=== PATIENT | female | born 1990 | race Caucasian/White ===

== ENCOUNTER 2021-08-07 10:12 | Emergency (ER) | payer OTHER ==
[2021-08-07] MEDS ORDERED: SODIUM CHLORIDE 0.9% 1,000 ML IV STA (10:34)
[2021-08-07] MEDS ORDERED: ONDANSETRON 4 MG/2 ML VIAL IVP STA (10:34)
--- NOTE | 2021-08-07 10:35 | ED Physician Documentation ---
PD HPI ABD PAIN - Stated complaint Stated Complaint: FEVER, RT LOWER ABD PX, HEADACHE - Chief complaint Chief Complaint: Abd Pain - History obtained from History obtained from: Patient - Additional information Additional information: 30-year-old with history of remote ectopic on the left presents with 2 days of right lower quadrant pain associated with a fever at home up to 101. She doubts , last menses was the fourth of this month although she is sexually active. [place] [employer] [place] and evaluated and sent here for CT scanning for concern for appendicitis. Declines pain medication on initial evaluation but would like something for nausea. Review of Systems Ten Systems: 10 systems reviewed and negative Constitutional: denies: Fever, Chills Eyes: reports: Reviewed and negative Cardiac: reports: Reviewed and negative Respiratory: reports: Reviewed and negative PD PAST MEDICAL HISTORY - Present Medications Home Medications: Ambulatory Orders Medication Instructions Recorded Confirmed Ciprofloxacin HCl [Cipro] 500 mg PO BID #14 tablet 08/07/21 HYDROcod/ACETAM 5/325 [[place] 5/325] 1 - 2 tab PO Q6H PRN #15 tablet 08/07/21 Ondansetron Odt [Zofran] 4 mg TL Q6H PRN #10 tablet 08/07/21 metroNIDAZOLE [Flagyl] 500 mg PO TID 7 Days #21 tablet 08/07/21 - Allergies Allergies/Adverse Reactions: Allergies Allergy/AdvReac Type Severity Reaction Status Date / Time No Known Drug Allergies Allergy Verified 08/07/21 10:29 PD ED PE NORMAL - Vitals Vital signs reviewed: Yes - General General: Alert and oriented X 3, No acute distress - HEENT HEENT: PERRL, EOMI - Neck Neck: Supple, no meningeal sign, No bony TTP - Cardiac Cardiac: RRR, No murmur - Respiratory Respiratory: No respiratory distress, Clear bilaterally - Abdomen Abdomen: Normal bowel sounds, Soft, Other (Focally tender in the right lower wu drant at McBurney's point without surgical signs) - Back Back: No CVA TTP, No spinal TTP - Derm Derm: Normal color, Warm and dry - Extremities Extremities: No edema, No calf tenderness / cord - Neuro Neuro: Alert and oriented X 3, Normal speech Results - Vitals Vitals: Vital Signs - 24 hr 08/07/21 08/07/21 10:20 10:52 Temperature 37.2 C Heart Rate 75 73 Respiratory 19 16 Rate Blood Pressure 118/96 H 117/73 O2 Saturation 99 100 Oxygen O2 Source Room air - Labs Labs: Laboratory Tests 08/07/21 08/07/21 08/07/21 10:53 11:11 11:11 WBC 11.0 H RBC 4.72 Hgb 10.5 L Hct 33.5 L MCV 71.0 L MCH 22.2 L MCHC 31.3 L RDW 14.2 Plt Count 280 MPV 11.8 H Neut # (Auto) 9.0 H Lymph # (Auto) 0.8 L [place] # (Auto) 1.0 Eos # (Auto) 0.1 Baso # (Auto) 0.0 Absolute Nucleated RBC 0.00 Nucleated RBC % 0.0 Sodium 135 Potassium 3.3 L Chloride 103 Carbon Dioxide 25 Anion Gap 7.0 BUN 9 Creatinine 0.8 Estimated GFR (MDRD) 84 L Glucose 114 H Calcium 8.1 L Total Bilirubin 0.5 AST 10 ALT 13 Alkaline Phosphatase 46 Total Protein 6.7 Albumin 3.5 Globulin 3.2 Albumin/Globulin Ratio 1.1 Lipase 27 Urine Color DARK YELLOW Urine Clarity CLEAR Urine pH 6.0 Ur Specific [place] >=1.030 H Urine Protein NEGATIVE Urine Glucose (UA) NEGATIVE Urine Ketones NEGATIVE Urine Occult Blood NEGATIVE Urine Nitrite NEGATIVE Urine Bilirubin NEGATIVE Urine Urobilinogen 0.2 (NORMAL) Ur Leukocyte Esterase NEGATIVE Ur Microscopic Review NOT INDICATED Urine Culture Comments NOT INDICATED Urine HCG, Qual NEGATIVE PD MEDICAL DECISION MAKING - ED course ED course: 30-year-old woman presents with history and physical concerning for appendicitis. CT showing colonic inflammation and left ovarian cyst. The colonic inflammation is likely causative for her pain. Discussed findings with her and the need for follow-up for both ultrasonography and colonoscopy based on the diagnostics today. Departure - Departure Disposition: Home, Self Care Clinical Impression: Colitis, Ovarian cyst Condition: Good Record reviewed to determine appropriate education?: Yes Instructions: ED Gastroenteritis Non Infec Prescriptions: Ciprofloxacin HCl [Cipro] 500 mg PO BID #14 tablet metroNIDAZOLE [Flagyl] 500 mg PO TID 7 Days #21 tablet HYDROcod/ACETAM 5/325 [[place] 5/325] 1 - 2 tab PO Q6H PRN #15 tablet PRN Reason: Pain Ondansetron Odt [Zofran] 4 mg TL Q6H PRN #10 tablet PRN Reason: Nausea / Vomiting Comments: As discussed, you have inflammation of the colon on the right side. We are treating with antibiotics and should improve over 48 hours or so. Return if worse or if not improving in that timeframe. I [place] [facility] [place]. As discussed, talk with your doctor about a follow-up colonoscopy in the next couple of months, also ultrasound to reevaluate left ovarian cyst measuring 5 cm around 6 weeks from now. I am prescribing a short course of narcotic pain medication for you. These are potentially dangerous and addictive medications that should be used carefully. These medications may constipate you. Take an [id number] stool softener (docusate) twice daily with plenty of water while taking these medications. If you go 24 hours without a bowel movement, take [id number] miralax, per package instructions. Do not drink or drive while taking these medications. If you received narcotic or sedating medications while in the emergency department, do not drive for 24 hours. Store this medication in a safe, secure place and out of reach of children. It is a violation of federal law to give or sell this medication to another person or to use in a manner other than prescribed. The ED will not refill narcotic prescriptions, including prescriptions lost or stolen. To dispose of unwanted medications: 1. [facility] at [address] in [place] has a medication drop box. They accept prescription medications (in pill form) Wednesday through Wednesday 9:00 a.m. to 5:00 p.m. 2. The [facility] accepts prescription medications (in pill form only) for disposal year round. Call for more information. 3. Contact the [facility] for the next [facility] sponsored prescription drug collection event. , [phone], or [phone]; Note that many narcotic pain relievers also contain Tylenol/acetaminophen. Please ensure that your total dose of acetaminophen from all sources does not exceed 3 g (3000 mg) per day.
[2021-08-07] MEDS ORDERED: IOVERSOL 320 100 ML VIAL IVP ONE ×2 (10:52→14:25)
[2021-08-07 11:03] LABS: BILIRUBIN,URINE NEGATIVE (NEGATIVE); GLUCOSE, URINE (UA) NEGATIVE (NEGATIVE); KETONES,URINE (UA) NEGATIVE (NEGATIVE); LEUKOCYTE ESTERASE, URINE NEGATIVE (NEGATIVE); NITRITE,URINE NEGATIVE (NEGATIVE); OCCULT BLOOD,URINE NEGATIVE (NEGATIVE); PROTEIN,URINE NEGATIVE (NEGATIVE); UROBILINOGEN,URINE 0.2 (NORMAL) E.U./dL (NORMAL)
[2021-08-07 11:06] LABS: CLARITY,URINE CLEAR (CLEAR); HCG UR QUAL NEGATIVE
[2021-08-07 11:16] LABS: BASOPHILS % (AUTO) 0.3 %; EOSINOPHILS # (AUTO) 0.1 10^3/uL (0.0-0.7); EOSINOPHILS % (AUTO) 1.2 %; HCT - HEMATOCRIT 33.5 % (37.0-47.0); HGB - HEMOGLOBIN 10.5 g/dL (12.0-16.0); LYMPHOCYTES # (AUTO) 0.8 10^3/uL (1.5-3.5); LYMPHOCYTES % (AUTO) 7.6 %; MEAN CORPUSCULAR HEMOGLOBIN 22.2 pg (27.0-31.0); MEAN CORPUSCULAR HGB CONC 31.3 g/dL (32.0-36.0); MEAN PLATELET VOLUME 11.8 fL (7.9-10.8); MONOCYTES % (AUTO) 8.9 %; NEUTROPHILS % (AUTO) 81.5 %; PLT - PLATELET COUNT 280 10^3/uL (130-450); RED BLOOD COUNT 4.72 10^6/uL (4.20-5.40); RED CELL DISTRIBUTION WIDTH 14.2 % (12.0-15.0)
[2021-08-07 11:27] LABS: ALBUMIN 3.5 g/dL (3.2-5.5); ALBUMIN/GLOBULIN RATIO 1.1 (1.0-2.2); BILIRUBIN,TOTAL 0.5 mg/dL (0.2-1.0); CALCIUM 8.1 mg/dL (8.5-10.3); CREATININE 0.8 mg/dL (0.4-1.0); POTASSIUM 3.3 mmol/L (3.5-5.0); TOTAL PROTEIN 6.7 g/dL (6.7-8.2)
[2021-08-07] MEDS ORDERED: KETOROLAC 15 MG/ML VIAL IVP STA (11:38)
--- NOTE | 2021-08-07 12:11 | CT Report ---
PROCEDURE: Abdomen/Pelvis W INDICATIONS: IV only, RLQ pain CONTRAST: IV CONTRAST: Optiray 320 ml: 100 PO CONTRAST: *NO PO CONTRAST TECHNIQUE: After the administration of intravenous contrast, 5 mm thick sections acquired from the diaphragms to the symphysis. 5 mm thick coronal and sagittal reformats were acquired. For radiation dose reducti on, the following was used: automated exposure control, adjustment of mA and/or kV according to sam ent size. COMPARISON: None. FINDINGS: Image quality: Excellent. ABDOMEN: Lung bases: Lung bases are clear. Heart size is normal. Solid organs: Liver and spleen are normal in size and enhancement. Gallbladder is contracted, which limits evaluation. Biliary system is non dilated. Pancreas enhances normally. No adrenal nodules. Kidneys demonstrate normal size and enhancement, without hydronephrosis. Hypodense lesion in the r ight kidney is most likely a cyst. Peritoneum and bowel: Long segment of bowel thickening is seen involving the ascending and transverse colon and likely the descending colon. There is trace pericolonic fat stranding adjacent to the asce nding colon. The appendix is seen in the right lower quadrant and is normal in size. Trace free fluid in the pelvis is most likely physiologic. There is no pneumoperitoneum. Nodes and vessels: No retroperitoneal or mesenteric adenopathy by size criteria. Aorta and inferior vena cava are normal in size. Miscellaneous: No ventral hernias. PELVIS: Genitourinary: Bladder wall thickness is normal. The uterus is normal in size. A left ovarian cyst measures up to 5.2 cm in maximum dimension on coronal images. Right ovary is normal in size. Miscellaneous: No inguinal hernias or adenopathy. Bones: No suspicious bony lesions. No vertebral body compression fractures. IMPRESSION: 1.Long segment of bowel thickening involving the majority of the colon is suspicious for a nonspecifi c colitis. Findings are most prominent in the ascending colon where there is mild pericolic fat stran ding. No signs of acute appendicitis. 2.Left ovarian 5.2 cm cyst. Recommend nonemergent pelvic ultrasound for further characterization. Reviewed by: Yordan Gambino MD on 08/07/2021 11:10 AM [facility] Approved by: Yordan Gambino MD on 08/07/2021 11:[address] [facility] Station ID: [id number]
[2021-08-07 12:45] VITALS: BP 110/70
== END 2021-08-07 12:45 | disposition home or self-care (01) ==
LOC: ED 10:12
DX: N83.202 Unspecified ovarian cyst, left side (principal); K52.9 Noninfective gastroenteritis and colitis, unspecified
CPT/HCPCS: 36415; 74177; 80053; 81003; 81025; 83690; 85025; 96374; 96375; 99284; Q9967; 81001; 87086